=== PATIENT | female | born 1965 | race African-American/Black ===

== ENCOUNTER 2017-10-21 07:04 | Outpatient (CLI) | payer OTHER | END 2017-10-21 07:13 | disposition home or self-care (01) | LOC: LAB 07:04 | DX: D50.8 Other iron deficiency anemias (principal); D51.3 Other dietary vitamin B12 deficiency anemia; K31.83 Achlorhydria; D51.1 Vitamin B12 deficiency anemia due to selective vitamin B12 malabsorption with proteinuria; D51.8 Other vitamin B12 deficiency anemias; K29.40 Chronic atrophic gastritis without bleeding; E03.8 Other specified hypothyroidism; E06.3 Autoimmune thyroiditis; E06.5 Other chronic thyroiditis; D51.0 Vitamin B12 deficiency anemia due to intrinsic factor deficiency; F41.0 Panic disorder [episodic paroxysmal anxiety]; I10 Essential (primary) hypertension; K90.89 Other intestinal malabsorption ==